=== PATIENT | female | born 1970 | race Caucasian/White ===

== ENCOUNTER 2016-10-16 07:56 | Emergency (ER) | payer OTHER ==
--- NOTE | 2016-10-16 08:51 | ED ---
Complex/Multi-Sys Presentation - HPI Summary HPI Summary: Pt here w/ fall earlier this morning and now has pain along Lt ribs/back w/ deep breath. Was walking her dog down her steps at home when she missed one and went down - rotated torso to the Rt and grabbed her railing - landed on bottom she believes. Denies LOC or hitting her head. Has some Lt shoulder pain as well - has been chronic but worse since fall. Denies radiating sx and no numbness or weakness. Denies photophobia, tinnitus, visual change, neck pain, lower back pain, ab pain, LE pain. Took motrin prior to coming in - does not want anything else for pain -just wants to know if she has a broken rib. - History Of Current Complaint Chief Complaint: EDBackInjuryPain Time Seen by Provider: 10/16/16 08:31 Hx Obtained From: Patient - Allergies/Home Medications Allergies/Adverse Reactions: Allergies Allergy/AdvReac Type Severity Reaction Status Date / Time Penicillins Allergy Unknown Verified 10/16/16 08:19 Reaction Details Prednisone Allergy Swelling Verified 10/16/16 08:19 PMH/Surg Hx/FS Hx/Imm Hx Previously Healthy: Yes Endocrine/Hematology History: Denies: Hx Anticoagulant Therapy, Hx Blood Disorders Respiratory History: Denies: Hx Asthma, Hx Chronic Obstructive Pulmonary Disease (COPD) Musculoskeletal History: Reports: Other Musculoskeletal History - chronic Lt shoulder "joint issues" Psychiatric History: Reports: Hx Anxiety Infectious Disease History: No Infectious Disease History: Denies: Traveled Outside the [place] in Last 30 Days - Social History Occupation: Employed Full-time - housekeeping at [employer]; hairdresser Lives: With Family - children Alcohol Use: Rare Hx Substance Use: No Substance Use Type: Reports: None Smoking Status (MU): Former Smoker - quit 14 year ago Review of Systems Constitutional: Negative Eyes: Negative ENT: Negative Cardiovascular: Other - see HPI Respiratory: Other - see HPI Negative: Shortness Of Breath, Cough Negative: Abdominal Pain, Vomiting, Diarrhea, Nausea Positive: no symptoms reported Musculoskeletal: Other - see HPI Negative: Bruising Neurological: Negative Psychological: Normal - concerned All Other Systems Reviewed And Are Negative: Yes Physical Exam Triage Information Reviewed: Yes Vital Signs On Initial Exam: Initial Vitals Temp Pulse Resp BP Pulse Ox 97.9 F 71 15 140/90 99 10/16/16 08:05 10/16/16 08:05 10/16/16 08:05 10/16/16 08:05 10/16/16 08:05 Vital Signs Reviewed: Yes Appearance: Positive: Well-Appearing, Pain Distress - mild - pt sitting in chair as this is most comfortable Skin: Positive: Warm - no ecchymosis, no erythema over affected area, Dry Head/Face: Positive: Normal Head/Face Inspection Eyes: Positive: Normal, EOMI, MICHAEL, Conjunctiva Clear ENT: Positive: Hearing grossly normal, Pharynx normal - mucosa moist, TMs normal - no hemotympanum. Negative: Nasal drainage Dental: Negative: Dental Fracture @ Neck: Positive: Supple, Nontender Respiratory/Lung Sounds: Positive: Decreased Breath Sounds - pt gaurding against deep breathes d/t pain, Other - breathing easily. Negative: Stridor, Wheezes Cardiovascular: Positive: Normal, RRR, Pulses are Symmetrical in both Upper and Lower Extremities Abdomen Description: Positive: Nontender, Soft Bowel Sounds: Positive: Present Musculoskeletal: Positive: Pain @ - Lt ribs TTP; Lt shoulder w/ limited ROM in abduction/flexion and rotation d/t "joint pain"; distal strength and ROM intact and equal B/L, Other - spinous pp and parapsinal mm NTTP Neurological: Positive: Normal, Sensory/Motor Intact, Alert, Oriented to Person Place, Time, CN Intact II-III Psychiatric: Positive: Normal Diagnostics - Vital Signs Vital Signs Temp Pulse Resp BP Pulse Ox 10/16/16 08:05 97.9 F 71 15 140/90 99 - Laboratory Lab Statement: Any lab studies that have been ordered have been reviewed, and results considered in the medical decision making process. Complex Multi-Symp Course/Dx - Diagnoses Provider Diagnoses: Intercostal muscle strain Discharge - Discharge Plan Condition: Stable Disposition: HOME Patient Education Materials: Muscle Strain (ED) Forms: *Work Release Referrals: Manish Burns MD [Primary Care Provider] - Additional Instructions: Heat in the morning with gentle stretches of back and upper extremities - ice after. You may continue motrin with food and drink plenty of water. You may also try acetaminophen (extra strength) and/or topical rubs/patches (ie. salonpas) for pain. Keep appointment this Saturday with your PCP. If symptoms persist, you may benefit from PT and/or osteopathic care. NOTE: your Left shoulder reveals chronic inflammatory injuries - review results with PCP
--- NOTE | 2016-10-16 09:15 | RAD ---
HISTORY: Fall, left rib pain COMPARISONS: None VIEWS: 5, Frontal view of the chest with frontal and oblique views of the left hemithorax FINDINGS: There is no displaced rib fracture or pneumothorax. The visualized lungs are clear. IMPRESSION: NO DISPLACED RIB FRACTURE OR PNEUMOTHORAX
--- NOTE | 2016-10-16 09:17 | RAD ---
HISTORY: Left shoulder pain COMPARISONS: None VIEWS: 3, Frontal internal rotation, external rotation, and outlet views of the left shoulder FINDINGS: BONE DENSITY: Normal. BONES: There is no displaced fracture. JOINTS: There is no arthropathy. ALIGNMENT: There is no dislocation. SOFT TISSUES: There is minimal soft tissue calcification along the proximal humerus best seen on the ventral rotation view OTHER FINDINGS: None. IMPRESSION: MINIMAL SOFT TISSUE CALCIFICATION SUGGESTIVE OF CALCIFIC TENDINOPATHY. NO ACUTE OSSEOUS INJURY. IF SYMPTOMS PERSIST, RECOMMEND REPEAT IMAGING.
[2016-10-16 09:57] VITALS: BP 143/89
== END 2016-10-16 09:55 | disposition home or self-care (01) ==
LOC: ED 07:56
DX: T14.8 Other injury of unspecified body region (principal); M25.512 Pain in left shoulder; R07.81 Pleurodynia; W10.9XXA Fall (on) (from) unspecified stairs and steps, initial encounter; Y93.9 Activity, unspecified; Y92.9 Unspecified place or not applicable
CPT/HCPCS: 99282